=== PATIENT | male | born 1995 | race Two or more races ===

== ENCOUNTER 2022-07-26 06:39 | Emergency (ER) | payer MEDICAID, OTHER ==
[~2022-07-26] VITALS: Ht 172.7 cm; Wt 90.9 kg
[2022-07-26] MEDS ORDERED: EPINEPHrine HCL 1 MG/10 ML SYRG IV ONE (06:40)
== END 2022-07-26 10:54 ==
LOC: ER 06:39 → EDBD 06:39 → ER 10:54
DX: S02.102A Fracture of base of skull, left side, initial encounter for closed fracture (principal); S19.9XXA Unspecified injury of neck, initial encounter; I46.9 Cardiac arrest, cause unspecified; V23.4XXA Motorcycle driver injured in collision with car, pick-up truck or van in traffic accident, initial encounter; Y93.89 Activity, other specified; Y92.410 Unspecified street and highway as the place of occurrence of the external cause; Y99.8 Other external cause status
CPT/HCPCS: 92950; 99285; J0171